=== PATIENT | female | born 1980 | race Two or more races ===

== ENCOUNTER 2024-08-24 09:28 | Emergency (ER) | payer MEDICAID, OTHER ==
[~2024-08-24] VITALS: Ht 175.3 cm; Wt 103.3 kg
[2024-08-24 10:52] VITALS: BP 145/86; PULSE 103; RESP 16; TEMP 99.4; O2SAT 99
[2024-08-24] MEDS ORDERED: METH4PAK PO (11:32)
[2024-08-24] MEDS ORDERED: LIDO2SOL26 MT (11:32)
[2024-08-24] MEDS ORDERED: IBUP-1454 PO (11:32)
[2024-08-24] MEDS ORDERED: PENI500T2 PO (11:32)
[2024-08-24] MEDS ORDERED: ACET500T58 PO (11:32)
--- NOTE | 2024-08-24 11:32 | ED.PDOC ---
Eye-HPI HPI Comments 44 year presents for sore throat x 10 days No associated symptoms Denies chest pain shortness of breath Denies inability to move neck, history of meningitis Denies difficulty swallowing nor persistent salivation Denies fevers chills night sweats Denies persistent cough, runny nose, congestion Denies loss of appetite, unintentional weight loss over the past 3 months Denies voice changes Denies history of asthma or seasonal allergies Chief Complaint: Sore Throat Time Seen by MD: 09:44 Reviewed Notes: Nurses Notes, Medications Home Meds Active Scripts Lidocaine HCl (Mouth-Throat) (Lidocaine HCl Viscous) 2 % Casi, 15 ML MT TID for 2 Days, #200 ML 0 Refills Prov:FAITH HESTER NP 08/24/24 Ibuprofen (Ibuprofen) 600 Mg Tab, 1 TAB PO TID for 10 Days, #30 TAB 0 Refills Prov:FAITH HESTER NP 08/24/24 Acetaminophen (Acetaminophen) 500 Mg Tab, 500 MG PO Q6HP PRN for 10 Days, #40 TAB 0 Refills Prov:FAITH HESTER NP 08/24/24 Methylprednisolone (Medrol Dosepak) 4 Mg Geovanni, 4 MG PO UD, #21 TAB 0 Refills UAD Prov:FAITH HESTER NP 08/24/24 Penicillin V Potassium (Veetids) 500 Mg Tab, 1 TAB PO BID for 10 Days, #20 TAB 0 Refills Prov:FAITH HESTER NP 08/24/24 Information Source: Patient Mode of Arrival: Ambulatory Family History Family History: Reviewed,noncontributory to illness Social History Smoker: Non-Smoker Alcohol: Denies ETOH Use Drugs: Denies Drug Use All Other Systems: Reviewed and Negative (per hpi) Physical Exam General Appearance: No Apparent Distress, Normal HEENT: Normal ENT Inspection, Pharyngeal Erythema (Bilateral tonsillar exudate. Uvula midline no airway obstruction), TMs Normal Neck: Full Range of Motion, Non-Tender, Normal, Normal Inspection Respiratory: Chest Non-Tender, Lungs Clear, No Accessory Muscle Use, No Respiratory Distress, Normal Breath Sounds Cardiovascular: No Edema, No JVD, No Murmur, No Gallop, Normal Peripheral Pulses, Regular Rate/Rhythm Breast Exam: Deferred Gastrointestinal: No Organomegaly, Non Tender, No Pulsatile Mass, Normal Bowel Sounds, Soft Genitalia: Deferred Pelvic: Deferred Rectal: Deferred Extremities: No calf tenderness, Normal capillary refill, Normal inspection, Normal range of motion, Non-tender, No pedal edema Musculoskeletal : Apperance: Normal Neurologic: Alert, marketing pr intern II-XII nml as Tested, No Motor Deficits, Normal Affect, Normal Mood, No Sensory Deficits Cerebellar Function: Normal Reflexes: Normal Skin: Dry, Normal Color, Warm Lymphatic: No Adenopathy Was a procedure done? Was a procedure done?: No EENT DIFF Eye: Other Sore Throat: Streptococcal, Viral Pharyngitis X-Ray, Labs, Meds, VS Vital Signs Date Time Temp Pulse Resp B/P (MAP) Pulse Ox O2 Delivery O2 Flow Rate FiO2 08/24/24 10:52 99.4 103 16 145/86 (105) 99 99.4 08/24/24 10:52 103 16 99 Room Air 08/24/24 09:56 99.4 103 16 145/86 (105) 99 X-Ray, Labs, Meds, VS Comment Exam/test findings consistent with strep throat infection. Empiric treatment Encouraged fluid intake Acetaminophen to reduce pain/fever NSAIDs to reduce pain/fever Nonpharmacological recommendations given Warm salt water gargles Throat lozenges Humidified air Return precautions given Worsening pain Fevers past 48 hours after antibiotics Any neck pain, headache, vision issues, or other concerns Patient is stable for discharge at this time. External notes reviewed. Test results and diagnostic imaging interpreted. All diagnostic findings, discharge care, education and instructions provided Follow-up with PCP in 2 to 3 days Patient verbalized understanding and agreed to treatment plan Vital signs stable, afebrile, no acute distress noted Patient ambulatory with strong steady gait Advised to return precautions for any new or worsening symptoms, return to ER immediately for re-evaluation Patient is aware that the purpose of this visit was for an acute medical emergency requiring emergent stabilization. Chronic conditions, including malignancies have not been ruled out. Patient is instructed to follow up with PCP as directed and discharge instructions for continued care and workup. If unable to arrange follow-up, patient is to return to the emergency department for reassessment. Patient (parent or legal guardian if applicable) was given verbal and written discharge instructions and acknowledges understanding. Time of 1ST Reevaluation: 11:00 Reevaluation 1ST: Improved Patient Education/Counseling: Diagnosis, Treatment Family Education/Counseling: Diagnosis, Treatment Departure 1 Departure Time of Disposition: 11:29 Impression: Primary Impression: Tonsillar exudate Disposition: HOME / SELF CARE / HOMELESS Condition: Stable e-Prescriptions Lidocaine HCl (Mouth-Throat) (Lidocaine HCl Viscous) 2 % Casi 15 ML MT TID for 2 Days, #200 ML 0 Refills Prov: FAITH HESTER NP 08/24/24 Ibuprofen (Ibuprofen) 600 Mg Tab 1 TAB PO TID for 10 Days, #30 TAB 0 Refills Prov: FAITH HESTER NP 08/24/24 Acetaminophen (Acetaminophen) 500 Mg Tab 500 MG PO Q6HP PRN for 10 Days, #40 TAB 0 Refills Prov: FAITH HESTER NP 08/24/24 Methylprednisolone (Medrol Dosepak) 4 Mg Geovanni 4 MG PO UD, #21 TAB 0 Refills UAD Prov: FAITH HESTER NP 08/24/24 Penicillin V Potassium (Veetids) 500 Mg Tab 1 TAB PO BID for 10 Days, #20 TAB 0 Refills Prov: FAITH HESTER NP 08/24/24 Critical Care Note Critical Care Time?: No Stability Stability form required: No Heart Score Heart Score: Heart Score Response (Comments) Value History N/A 0 EKG N/A 0 Age N/A 0 Risk Factors N/A 0 Troponin N/A 0 Total 0 FAITH HESTER NP Aug 24, 2024 11:32
== END 2024-08-24 11:51 | disposition home or self-care (01) ==
LOC: ER 09:28
DX: J03.80 Acute tonsillitis due to other specified organisms (principal); Z79.899 Other long term (current) drug therapy

== ENCOUNTER 2025-02-09 07:30 | Outpatient (CLI) | payer BC ==
[~2025-02-09 07:30] MED LIST: ACET500T58 PO; IBUP-1454 PO; LIDO2SOL26 MT; METH4PAK PO; PENI500T2 PO
[2025-02-09 08:04] LABS: Basophils # (auto) 0 10 ^3/uL (0-0.2); Basophils % (auto) 0.7 % (0.0-2.0); Eosinophils # (auto) 0.1 10 ^3/uL (0-0.8); Eosinophils % (auto) 1.1 % (0.0-7.0); Hematocrit 31.5 % (36.0-46.0); Hemoglobin 9.7 g/dL (12.2-16.2); Lymphocytes # (auto) 1.7 10 ^3/uL (0.4-5.4); Lymphocytes % (auto) 24.6 % (10.0-50.0); Mean Corpuscular Hemoglobin 19.2 pg (28.0-32.0); Mean Corpuscular Hgb Conc. 30.9 g/dL (32.0-36.0); Mean Corpuscular Volume 61.9 fL (80.0-100.0); Monocytes # (auto) 0.6 10 ^3/uL (0-1.3); Monocytes % (auto) 8.6 % (0.0-12.0); Neutrophils # (auto) 4.5 10 ^3/uL (1.6-8.6); Platelet Count (auto) 431 10^3/uL (140-450); Red Blood Cells 5.08 10^6/uL (4.0-5.20); White Blood Cell 6.9 10^3/uL (4.4-10.8)
[2025-02-09 08:05] LABS: Red Cell Distribution Width 22.1 % (11.8-14.3)
[2025-02-09 08:44] LABS: Alanine Aminotransferase 14 U/L (7-40); Albumin 4.5 g/dL (3.2-4.8); Alkaline Phosphatase 75 U/L (46-116); Anion Gap 12 (5-15); BUN/Creatinine Ratio 6.5 (10.0-20.0); Bilirubin, Total 0.3 mg/dL (0.2-1.0); Calcium 9.3 mg/dL (8.7-10.4); Carbon Dioxide 29 mmol/L (20-31); Chloride 100 mmol/L (98-107); Sodium 141 mmol/L (136-145); Total Protein 7.8 g/dL (5.7-8.2)
[2025-02-09 08:48] LABS: Aspartate Aminotransferase 11 U/L (13-40); Blood Urea Nitrogen 6 mg/dL (9-23); Glucose 167 mg/dL (74-106); Potassium 2.7 mmol/L (3.5-5.1)
[2025-02-09 10:43] LABS: Free T4 (Free Thyroxine) 1.08 ng/dL (0.89-1.76)
[2025-02-09 10:44] LABS: T3 Total 1.77 ng/mL (0.60-1.81)
[2025-02-09 10:45] LABS: Follicle Stimulating Hormone 6.23 IU/L (SEE BELOW)
[2025-02-09 10:46] LABS: Prolactin 20.77 ng/mL (2.8-29.2)
[2025-02-12 00:07] LABS: Free Testosterone(Direct) 1.4 pg/mL (0.0-4.2)
== END 2025-02-09 17:00 | disposition home or self-care (01) ==
LOC: LAB 07:30
DX: E28.8 Other ovarian dysfunction (principal); Z79.899 Other long term (current) drug therapy
CPT/HCPCS: 36415; 80053; 82626; 82670; 83001; 83002; 83036; 84146; 84402; 84403; 84439; 84443; 84480; 85025